=== PATIENT | female | born 1995 | race Caucasian/White ===

== ENCOUNTER 2017-10-21 07:00 | Day surgery (SDC) | payer MEDICAID ==
[2017-10-19 16:31] LABS: BASOPHILS 0.1 % (0-2); EOSINOPHILS 0.7 % (0-7); HEMATOCRIT 35.5 % (36.0-48.0); HEMOGLOBIN 12.4 g/dL (12-16); IMMATURE GRANULOCYTES 0.2 % (0-5); LYMPHOCYTES 27.3 % (15-50); MCH 28.4 pg (26.0-34.0); MCHC 34.9 g/dL (31.0-37.0); MCV 81.2 fL (80.0-100.0); MEAN PLATELET VOLUME 9.3 fL (7.4-10.4); MONOCYTES 4.4 % (2-11); NEUTROPHILS 67.3 % (40-80); PLATELET COUNT 212 10x3/uL (130-400); RBC 4.37 10x6/uL (4.00-5.40); WBC 8.4 10x3/uL (4.8-10.8)
[~2017-10-21] VITALS: Ht 160 cm; Wt 82.1 kg
--- NOTE | ~2017-10-21 | OP ---
PATIENT NAME: HARITHA WEBER MEDICAL RECORD: [id number] [facility] AD[facility] DATE: SURGEON: PITO VERDIN MD DATE OF OPERATION: 10/21/2017 PREOPERATIVE DIAGNOSIS: Missed . POSTOPERATIVE DIAGNOSIS: Missed . PROCEDURE: Suction dilation and curettage. SURGEON: Pito Verdin MD ESTIMATED BLOOD LOSS: 200 cc. INTRAVENOUS FLUIDS: Per anesthesia record. SPECIMENS: Endometrial curettings. COMPLICATIONS: None apparent. FINDINGS: 1. The patient dilated to approximately 8 mm at initial assessment. 2. Gross return of products of conception on suction D&C. PROCEDURE: The patient was taken to the operating room where general anesthesia was achieved without difficulty. The patient was then prepped and draped in normal sterile fashion in the dorsal lithotomy position in the [facility]. At this point, the patient was prepped and draped and the bladder drained of approximately 50 cc of clear yellow urine. At this point, a Graves speculum was placed into the vagina and the cervix was identified and grasped on its anterior lip with a single tooth tenaculum. The patient was noted to be dilated to approximately 7-8 mm. Further dilation was performed to approximately 10 mm, at which point a 9 mm straight suction curette was placed into the uterus without resistance. Suction curettage was performed times 2 with return of gross products of conception. A #1 curette was then used to gently explore the cavity and several small pieces of products of conception were removed using the curette. A final pass using the suction curette was performed with minimal return of blood and minimal blood coming from the cervix. The tenaculum was removed followed by the speculum. The patient tolerated the procedure well and was transferred to postanesthesia recovery stable without incident. TRANSINT:[id number] Voice Confirmation ID: [id number] DOCUMENT ID: [id number] PITO VERDIN MD at 1238 CC: [id number] DICTATION DATE: 11/05/17 0523 OIL FIELD PUMPER: 11/05/17 0603 [facility] 10/21/17 [place] [address]
[2017-10-21 07:19] VITALS: BP 123/71; Ht 160 cm; Wt 82.1 kg
== END 2017-10-21 11:20 | disposition home or self-care (01) ==
LOC: D.OPS 07:00 → D.PAN 08:00 → D.OPS 08:15
PROVIDERS: Obstetrics & Gynecology
DX: O02.1 Missed abortion (principal); F17.200 Nicotine dependence, unspecified, uncomplicated; Z01.812 Encounter for preprocedural laboratory examination

== ENCOUNTER 2018-07-20 17:03 | Emergency (ER) | payer MEDICAID ==
[2018-07-20 17:04] VITALS: BMI 31.9
[2018-07-20 17:49] LABS: BASOPHILS 0.1 % (0-2); EOSINOPHILS 0.9 % (0-7); HEMATOCRIT 40.5 % (36.0-48.0); HEMOGLOBIN 14.1 g/dL (12-16); IMMATURE GRANULOCYTES 0.2 % (0-5); LYMPHOCYTES 32.5 % (15-50); MCH 28.6 pg (26.0-34.0); MCHC 34.8 g/dL (31.0-37.0); MCV 82.2 fL (80.0-100.0); MEAN PLATELET VOLUME 10.3 fL (7.4-10.4); MONOCYTES 4.4 % (2-11); NEUTROPHILS 61.9 % (40-80); PLATELET COUNT 238 10x3/uL (130-400); RBC 4.93 10x6/uL (4.00-5.40); RDW 13.2 % (11.5-14.5); WBC 9.3 10x3/uL (4.8-10.8)
[2018-07-20 17:49] LABS: APPEARANCE CLEAR (CLEAR); BILIRUBIN NEGATIVE (NEGATIVE); COLOR STRAW (YELLOW); GLUCOSE NEGATIVE (NEGATIVE); KETONE NEGATIVE (NEGATIVE); NITRITE NEGATIVE (NEGATIVE); PROTEIN NEGATIVE (NEGATIVE); UROBILINOGEN NORMAL (NORMAL)
[2018-07-20 18:03] LABS: ALBUMIN 3.9 g/dL (3.4-5.0); ALKALINE PHOSPHATASE 64 U/L (46-116); ALT (SGPT) 45 U/L (10-68); BILIRUBIN - TOTAL 0.19 mg/dL (0.2-1.3); CALC OSMOLALITY 277 mosm/kg (275-300); CALCIUM 8.8 mg/dL (8.5-10.1); CHLORIDE - SERUM 102 mmol/L (98-107); CREATININE - SERUM 0.8 mg/dL (0.6-1.3); GLUCOSE 104 mg/dL (74-106); POTASSIUM - SERUM 3.7 mmol/L (3.5-5.1); SODIUM 140 mmol/L (136-145); UREA NITROGEN 10 mg/dL (7-18); eGFR NON AFRICAN AMERICAN > 90 mL/min (90-120)
[2018-07-20 18:06] LABS: AMYLASE - SERUM 43 U/L (25-115); LIPASE 176 U/L (73-393); TROPONIN-I < 0.017 ng/mL (0.000-0.060)
[2018-07-20 18:17] LABS: HCG SERUM NEGATIVE (NEGATIVE)
[2018-07-20 18:55] VITALS: BP 113/73
== END 2018-07-20 18:55 | disposition home or self-care (01) ==
LOC: D.ER 17:03
PROVIDERS: Emergency Medicine
DX: R10.9 Unspecified abdominal pain (principal); N91.2 Amenorrhea, unspecified